=== PATIENT | female | born 1980 | race Caucasian/White ===

== ENCOUNTER 2023-02-12 18:22 | Emergency (ER) | payer MEDICAID, SELFPAY ==
[2023-02-12 18:36] VITALS: BP 125/72; PULSE 67; RESP 18; TEMP 36.5; O2SAT 99; BMI 28.3
[2023-02-12 19:11] LABS: Appearance Urine Clear (Clear); Bilirubin Urine Negative (Negative); Blood Urine 3+ (Negative); Color Urine Orange (Yellow); Glucose Urine Negative (Negative); Ketones Urine Negative (Negative); Leukocyte Esterase Urine 1+ (Negative); Nitrite Urine Negative (Negative); Protein Urine 3+ (Negative); Specific Gravity Urine 1.025 (1.000-1.030); Urobilinogen Urine 0.2 (0.2-1.0)
[2023-02-12 19:20] LABS: RBC Urine 50-100 (0-2); Squamous Epithelial Cell Urine Moderate (None-Few)
--- NOTE | 2023-02-12 19:23 | ED_ITS ---
HPI - General Adult General Chief complaint: Urogenital Problems, Female Stated complaint: pain after kidney stone surgery Time Seen by Provider: 02/12/23 18:50 Source: patient Mode of arrival: ambulatory Limitations: no limitations History of Present Illness HPI narrative: 42-year-old female with known history of right-sided ureteral stone that underwent lithotripsy and stent placement 11 days ago. Reports that she has been experiencing pain, crampy in nature in the right lower abdomen and bladder area since the procedure. She was given 5 pain pills which she has certainly gone through. She also tells me that she has gone through private stash is of hydrocodone and other similar medications from previous outpatient visits. She reports that she was put on prophylactic Keflex and has been sporadic about taking this but is not experiencing any fever. Has mild nausea on occasion but no vomiting. No new trauma or injury. Reports that she was evaluated in the [place] ED 6 days ago. It sounds like a CT was performed and she had a 2 mm stone noted. This makes sense post lithotripsy. No signs of infection were noted at that time per her report. She was informed in triage that we do not have a urologist on staff and we would not be able to remove her stent. Past medical history notable for ADHD. Reports that her home medications are currently Adderall, Synthroid. Currently prescribed Flomax. Also reports that she has a history of peripheral vascular disease and uses aspirin for this. Smoker. ROS notable for the abdominal/urinary symptoms as above. Otherwise denies times 12 systems. Related Data Home Medications Medication Instructions Recorded Confirmed dextroamphetamine-amphetamine 15 1 tab PO DAILY PRN 02/12/23 02/12/23 mg tablet levothyroxine 88 mcg tablet 88 mcg PO QAM 02/12/23 02/12/23 (Synthroid) lisdexamfetamine 50 mg capsule 50 mg PO DAILY 02/12/23 02/12/23 (Vyvanse) Allergies Allergy/AdvReac Type Severity Reaction Status Date / Time No Known Drug Allergies Allergy Verified 02/12/23 18:45 PFSH PFS Medical History (Updated 02/12/23 @ 19:44 by Silvestre Weaver RN) No significant past medical history Surgical History (Updated 02/12/23 @ 19:44 by Silvestre Weaver RN) S/P ureteral stent placement ?Z96.0 - Presence of urogenital implants (ICD-10) Exam Const: Vital Signs, click to edit/add: Vital Signs - 24 hr 02/12/23 18:36 Temperature 97.7 F Pulse Rate [Right Pulse Oximeter] 67 Respiratory Rate 18 Blood Pressure [Ri ght Upper Arm] 125/72 Pulse Oximetry 99 Oxygen Delivery Me thod Room Air Documenting provider has reviewed patient's vital signs: yes Common normals: no apparent distress and alert General appearance: cooperative, comfortable and well kempt HENMT: Common normals: normocephalic Head and scalp: normocephalic Mouth: oral and palatal mucosa normal Eye: General eye: normal appearance of both eyes Neck & C-Spine: General: normal visual inspection Resp: Common normals: normal respiratory effort Effort & inspection: able to speak in complete sentences GI: Other: Abdomen appears nondistended and soft. Bowel sounds are normoactive. No tenderness to palpation. No masses or rebound tenderness. No guarding. Neuro: Sensorium/orientation: alert Speech: speech normal Motor exam: no movement abnormalities noted Psych: Appearance: well kempt Activity/motor behavior: appropriate eye contact Insight: insight good Judgement: judgment good Skin: Common normals: no rashes or lesions noted General skin exam: no rashes or lesions noted Course Course ED Course: Recommend urinalysis to look for infection. Counseled patient that while I cannot remove her stent here, I am not detecting any signs of emergent complication. I do not recommend further narcotic medication. I do recommend Tylenol and/or ibuprofen for pain control. Offered Flexeril to help her sleep, she assures me that she has some of this at home and thinks that she will try this. Encouraged her to consider melatonin and/or Tylenol p.m. as sleep aids also. She should call her urologist in the morning and troubleshoot different options. Hearing that there was only a [address] in [place] is reassuring. I do not think that we need to repeat the CT and cause additional radiation. Without fevers or other signs of vomiting, I do not think additional testing will be helpful. Counseled patient on my thoughts and findings. She verbalizes understanding and agreement. She declines further intervention and has no further questions. Vital Signs Vital signs: Initial Vital Signs Temperature 97.7 F 02/12/23 18:36 Temperature Source Temporal Artery Scan 10/22/23 18:36 Pulse Rate 67 02/12/23 18:36 Respiratory Rate 18 02/12/23 18:36 Blood Pressure 125/72 02/12/23 18:36 Blood Pressure Mean 89 02/12/23 18:36 Blood Pressure Position Sitting 02/12/23 18:36 Pulse Oximetry 99 02/12/23 18:36 Oxygen Delivery Method Room Air 02/12/23 18:36 Vital Signs Temperature 97.7 F 02/12/23 18:36 Pulse Rate 67 02/12/23 18:36 Respiratory Rate 18 02/12/23 18:36 Blood Pressure 125/72 02/12/23 18:36 Pulse Oximetry 99 02/12/23 18:36 Oxygen Delivery Method Room Air 02/12/23 18:36 Temperature 97.7 F 02/12/23 18:36 Pulse Rate 67 02/12/23 18:36 Respiratory Rate 18 02/12/23 18:36 Blood Pressure 125/72 02/12/23 18:36 Pulse Oximetry 99 02/12/23 18:36 Oxygen Delivery Method Room Air 02/12/23 18:36 Medical Decision Making Lab Data Labs: Lab Results 02/12/23 Range/Units 19:02 Urine Color [place] A (Yellow) Urine Appearance Clear (Clear) Urine pH 6.0 (5.0-8.5) Ur Specific [place] 1.025 (1.000-1.030) Urine Protein 3+ A (Negative) Urine Glucose (UA) Negative (Negative) Urine Ketones Negative (Negative) Urine Blood 3+ A (Negative) Urine Nitrite Negative (Negative) Urine Bilirubin Negative (Negative) Urine Urobilinogen 0.2 (0.2-1.0) Ur Leukocyte Esterase 1+ A (Negative) Urine RBC 50-100 A (0-2) Urine WBC 5-10 A (0-5) Ur Squamous Epith Cells Moderate A (None-Few) Urine Bacteria None (None) Urine Yeast Moderate A (None) Discharge Plan Discharge Clinical Impression: Pain due to ureteral stent Patient Disposition: Home, Self-Care Condition: Stable Instructions: Ureteral Stent Placement (DC) Additional Instructions: There are no signs of infection in your urine. There are no signs of complications from your stent. You have declined additional sleep aids like muscle relaxants. It is okay to continue using Tylenol and ibuprofen for your pain. Continue taking the Flomax that was prescribed. Call your urologist and ask about getting in sooner when the office opens in the morning. I am sorry that the stent is so uncomfortable but I a.m. encouraged to hear that this stone seems to be breaking up based on the CT scan that you had last Monday. Hopefully, the stent can be removed soon and your pain will improve. Activity Level: No Restrictions Discharge Diet: Regular Prescriptions: No Action levothyroxine [Synthroid] 88 mcg tablet 88 mcg PO QAM dextroamphetamine-amphetamine 15 mg tablet 1 tab PO DAILY PRN lisdexamfetamine [Vyvanse] 50 mg capsule 50 mg PO DAILY Stand Alone Forms: [employer] Info Instructions
[2023-02-12 19:45] VITALS: BP 118/74; PULSE 70; RESP 18; TEMP 36.7; O2SAT 99
[2023-02-12 19:46] VITALS: BP 118/74; PULSE 70; RESP 18; TEMP 36.7
== END 2023-02-12 19:46 | disposition home or self-care (01) ==
LOC: ED 19:36
PROVIDERS: Emergency Provider Family Medicine
DX: T83.84XA Pain due to genitourinary prosthetic devices, implants and grafts, initial encounter (principal); G89.18 Other acute postprocedural pain
CPT/HCPCS: 81003; 81015; 87086; 99282; 99283